=== PATIENT | male | born 1955 | race Caucasian/White ===

== ENCOUNTER 2018-01-01 17:50 | Inpatient (IN) | payer OTHER ==
[~2018-01-01] VITALS: Ht 172.7 cm; Wt 77.7 kg
[2018-01-01] VITALS (7 sets, daily range): BP systolic 132–160; BP diastolic 72–89
[2018-01-01 18:10] LABS: ABSOLUTE BASOPHILS 0.1 thou/uL (0.0-0.2); ABSOLUTE EOSINOPHILS 0.1 thou/uL (0.0-0.7); ABSOLUTE LYMPHOCYTES 1.2 thou/uL (0.8-5.3); ABSOLUTE MONOCYTES 0.5 thou/uL (0.0-1.2); ABSOLUTE NEUTROPHILS 2.7 thou/uL (1.6-8.1); BASOPHILS 1.6 %; EOSINOPHILS 1.1 %; HEMATOCRIT 37.5 % (42.0-52.0); HEMOGLOBIN 12.1 gm/dL (14.0-18.0); MCH 29.9 pg (26.0-34.0); MCHC 32.1 g/dL (28.0-37.0); MCV 93.2 fL (80.0-100.0); MONOCYTES 10.9 %; MPV 8.5 fl. (7.2-11.1); NUCLEATED RBCS 0 /100WBC; PLATELET COUNT* 72 thou/uL (150-400); POLYS 59.4 %; RBC 4.03 mil/uL (4.50-6.00); RDW-CV 18.2 % (10.5-14.5); WBC 4.6 thou/uL (4.0-11.0)
[2018-01-01 18:24] LABS: CALCIUM 7.8 mg/dL (8.5-10.1); CREATININE 2.8 mg/dL (0.6-1.3); POTASSIUM 3.5 mmol/L (3.5-5.1)
[2018-01-01 18:33] LABS: ALBUMIN 2.7 g/dL (3.4-5.0); APTT 26.1 Seconds (25.0-31.3); INR 1.3; MAGNESIUM 2.1 mg/dL (1.8-2.4); PROTIME 13.4 Seconds (9.20-11.50); TOTAL BILIRUBIN 0.8 mg/dL (<0.1-1.0); TROPONIN-I LEVEL 0.08 ng/mL (<0.06)
--- NOTE | 2018-01-01 19:00 | NUR ---
PT TO HAVE BEDSIDE BRONCHOSCOPY BY DR CARRENO. UNABLE TO OBTAIN CONSENT DUE TO SEDATION, AND URGENCY OF PROCEDURE. WILL CONTINUE TO MONITOR.
--- NOTE | 2018-01-01 19:10 | NUR ---
PT TOLERATED WELL, NOTHING EXTRACTED VIA BRONCHOSCOPY. SEE REASSESSMENT FOR PROCEDURE VITALS. WILL CONTINUE TO MONITOR.
[2018-01-01 22:02] LABS: BE -3.9 mmol/L (-2 to +3); HCO3 22.7 mmol/L (22.0-26.0); PCO2 47.2 mmHg (35.0-45.0)
[2018-01-01 22:04] LABS: pH 7.299 (7.340-7.450)
[2018-01-01 22:05] LABS: PO2 143.9 mmHg (75.0-100.0)
[2018-01-01 22:48] LABS: URINE BILIRUBIN NEGATIVE (Negative); URINE BLOOD 3+ (Negative); URINE CLARITY SL CLOUDY; URINE COLOR YELLOW; URINE GLUCOSE-RANDOM NEGATIVE (Negative); URINE KETONES NEGATIVE (Negative); URINE LEUKOCYTES-REFLEX NEGATIVE (Negative); URINE NITRITE-REFLEX NEGATIVE (Negative); URINE PROTEIN 3+ (Negative); URINE SPECIFIC GRAVITY 1.025 (1.005-1.030); URINE UROBILINOGEN 0.2 E.U./dl (0.2-1.0)
[2018-01-01 22:56] LABS: URINE WBC-REFLEX 0-5 Rare /HPF (0-5)
[2018-01-01 22:57] LABS: AMORPHOUS URATES Many /LPF (None Seen); HYALINE CASTS 0-3 Few /LPF (None Seen); MUCUS None Seen strn/LPF (None Seen); SQUAMOUS 0-3 Few /LPF (0-3)
[2018-01-01 22:58] LABS: URINE RBC 3-10 Few /HPF (0-2)
[2018-01-01 23:00] LABS: BACTERIA-REFLEX None Seen /HPF (None Seen)
[2018-01-02] VITALS (66 sets, daily range): BP systolic 79–168; BP diastolic 41–106
[2018-01-02] LABS: ANION GAP 7 mmol/L (7-16); BUN 57 mg/dL (7-18); CALCIUM 8.2 mg/dL (8.5-10.1); CHLORIDE 107 mmol/L (98-107); CO2 26 mmol/L (21-32); CREATININE 2.6 mg/dL (0.6-1.3); GLUCOSE 96 mg/dL (70-99); POTASSIUM 3.8 mmol/L (3.5-5.1); SODIUM 140 mmol/L (136-145)
[2018-01-02] MEDS ORDERED: DEMADEX20 MG PO
[2018-01-02] MEDS ORDERED: COREG25 MG PO (00:03)
[2018-01-02] MEDS ORDERED: ASPIR 8181 MG PO (00:04)
[2018-01-02] MEDS ORDERED: COZAAR 25 MG TA25 M1 PO (00:04)
[2018-01-02] MEDS ORDERED: CRESTOR10 MG PO (00:05)
[2018-01-02 00:12] LABS: NT-PRO BRAIN NAT PEPTIDE > 35000 pg/mL (<300); PHOSPHORUS* 5.3 mg/dL (2.5-4.9); TROPONIN-I LEVEL 0.37 ng/mL (<0.06)
[2018-01-02 00:34] LABS: MAGNESIUM 2.1 mg/dL (1.8-2.4)
[2018-01-02 00:36] LABS: INR 1.3; PROTIME 13.7 Seconds (9.20-11.50)
[2018-01-02 00:43] LABS: ABSOLUTE LYMPHOCYTES 0.5 thou/uL (0.8-5.3); ABSOLUTE MONOCYTES 0.3 thou/uL (0.0-1.2); BASOPHILS 0.8 %; EOSINOPHILS 0.6 %; LYMPHOCYTES 12.2 %; MCH 29.6 pg (26.0-34.0); MCHC 32.6 g/dL (28.0-37.0); MCV 90.8 fL (80.0-100.0); MONOCYTES 8.1 %; MPV 8.2 fl. (7.2-11.1); NUCLEATED RBCS 0 /100WBC; PLATELET COUNT* 59 thou/uL (150-400); POLYS 78.3 %; RBC 4.07 mil/uL (4.50-6.00); RDW-CV 17.8 % (10.5-14.5); WBC 3.8 thou/uL (4.0-11.0)
--- NOTE | 2018-01-02 06:17 | NUR ---
PT NOT PROGRESSING TOWARD GOALS. PT REMAINS IN HYPOTHERMIA. 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 PT ALSO HAS CATARACT BUT THE FAMILY IS NOT SURE WHICH EYE. FAMILY NOT VERY RELIABLE WITH MEDICAL HISTORY. PTS WALLET, MONEY, MEDICINE AND KEYS ARE BEING SENT TO SECURITY. PTS FAMILY WORRIED THAT THE PT WILL BE UPSET WITH MISSING HIS CLASS REUNION ON SATURDAY. THE PT ORGANIZED THE CLASS REUNION. PT PICKED CLASSMATE UP FROM [employer] YESTERDAY AND WAS ON HIS WAY BACK HOME TO [facility] WHEN THEY STOPPED FOR GAS IN [place]. PT SAID HE DID NOT FEEL WELL AND THOUGHT HIS BLOOD SUGAR WAS LOW, SO HE ATE A FASANEH SIZE KITKAT BAR. PTS BROTHER LIVES IN [place] WITH PTS MOTHER (MARY).
[2018-01-02 06:20] LABS: BE -3.9 mmol/L (-2 to +3); HCO3 19.8 mmol/L (22.0-26.0); pH 7.409 (7.340-7.450)
[2018-01-02 06:23] LABS: PO2 128.3 mmHg (75.0-100.0)
[2018-01-02 06:25] LABS: ALBUMIN 2.4 g/dL (3.4-5.0); ALKALINE PHOSPHATASE 44 U/L (46-116); ANION GAP 12 mmol/L (7-16); BUN 55 mg/dL (7-18); CALCIUM 7.9 mg/dL (8.5-10.1); CHLORIDE 107 mmol/L (98-107); CO2 22 mmol/L (21-32); CREATININE 2.4 mg/dL (0.6-1.3); GLUCOSE 96 mg/dL (70-99); NT-PRO BRAIN NAT PEPTIDE > 35000 pg/mL (<300); POTASSIUM 3.1 mmol/L (3.5-5.1); SGOT 29 U/L (15-37); SGPT 17 U/L (30-65); SODIUM 141 mmol/L (136-145); TOTAL BILIRUBIN 1.3 mg/dL (<0.1-1.0); TOTAL PROTEIN 5.4 g/dL (6.4-8.2)
--- NOTE | 2018-01-02 06:27 | NUR ---
ABLE TO IDENTIFY MOST OF PTS MEDICATIONS IN PILL BOX. BELIEVE THREE OF THE PILLS TO BE HERBAL OR VITAMINS. UNABLE TO VERIFY DOSES AND SCHEDULE WITH FAMILY.
--- NOTE | 2018-01-02 13:29 | NUR ---
ASSUMED CARE OF PATIENT THIS AM. REMAINS SEDATED ON VENT. BRADYCARDIC. BP WNL SATING 100% ON 40% FIO2. STILL ON CODE ICE PROTOCOL. TURNED Q2 HOURS. CORE TEMP 33 CELSIUS. EXTREMETIES PADDED. APPEARS COMFORTABLE.
--- NOTE | 2018-01-02 14:59 | NUR ---
PATIENT UCHANGED SENT FOR MED RECORDS.RECEIVED RECORDS FROM JUNE 2016. NO MENTION OF STINT IN JULY FOUND CARD IN [place]. [facility]RESPONSE FROM [facility].
--- NOTE | 2018-01-02 15:25 | 2DMMODE ---
[place] [address] 2 D/M-MODE ECHOCARDIOGRAM Name: RUBIMARTINALENARD CARTER III Room: [address] IN [facility]#: [id number] Admission: 01/01/18 Attend Phys: Gagandeep Tam Discharge: Date of : 53 Date of Service: 01/02/18 1525 Report #: [id number] THIS REPORT FOR: //name// APPROVED REPORT Study performed: 01/02/2018 09:17:47 EXAM: Comprehensive 2D, Doppler, and color-flow Echocardiogram Patient Location: In-Patient Room #: [facility] Status: routine BSA: 2.08 HR: 43 bpm BP: 145/75 mmHg Rhythm: NSR Other Information Study Quality: Good Indications Cardiomegaly 2D Dimensions IVSd: 11.28 (7-11mm) LVOT Diam: 21.68 (18-24mm) LVDd: 56.48 mm PWd: 11.01 (7-11mm) Ascending Ao: 33.21 (22-36mm) LVDs: 50.00 (25-40mm) Aortic Root: 35.73 mm Volumes Left Atrial Volume (Systole) LA ESV Index: 50.00 mL/m2 Aortic Valve AoV Peak Chuckie.: 1.06 m/s AO Peak Gr.: 4.47 mmHg LVOT Max P.51 mmHg AO Mean Gr.: 2.03 mmHg LVOT Mean P.56 mmHg LVOT Max V: 0.61 m/s AO V2 VTI: 26.49 cm LVOT Mean V: 0.33 m/s WES (VTI): 2.27 cm2 LVOT V1 VTI: 16.28 cm Mitral Valve E/A Ratio: 1.22 MV Decel. Time: 494.05 ms MV E Max Chuckie.: 0.49 m/[place] [address] 2 D/M-MODE ECHOCARDIOGRAM Name: MARTINA VENEGAS III Room: [address] IN [facility].#: [id number] Admission: 01/01/18 Attend Phys: Gagandeep Tam Discharge: Date of : 53 Date of Service: 01/02/18 1525 Report #: [id number] MV PHT: 143.28 ms MVA (PHT): 1.54 cm2 TDI E/Lateral E': 16.33 E/Medial E': 16.33 Medial E' Chuckie.: 0.03 m/s Lateral E' Chuckie.: 0.03 m/s Pulmonary Valve PV Peak Chuckie.: 0.64 m/s PV Peak Gr.: 1.62 mmHg Tricuspid Valve RAP Estimate: 5.00 mmHg TR Peak Gr.: 16.73 mmHg RVSP: 21.00 mmHg PA Pressure: 21.00 mmHg Left Ventricle Left ventricle is at the upper limits of normal. There is severe global hypokinesis of the left ventricle. There is normal left ventricular wall thickness. Left ventricular systolic function is severely decreased. LVEF is 20-25%. Transmitral Doppler flow pattern suggests impaired LV relaxation. Right Ventricle Right ventricle is mildly dilated. The right ventricular systolic function is normal. Atria Left atrium is moderately dilated. Right atrium is moderately dilated. Aortic Valve The aortic valve is normal in structure. No aortic regurgitation is present. There is no aortic valvular stenosis. Mitral Valve The mitral valve is normal in structure. Mild mitral regurgitation. No evidence of mitral valve stenosis. Tricuspid Valve The tricuspid valve is normal in structure. Trace tricuspid regurgitation. No pulmonary hypertension. Pulmonic Valve The pulmonary valve is normal in structure. There is no pulmonic [place] [address] 2 D/M-MODE ECHOCARDIOGRAM Name: MARTINA VENEGAS III Room: [address]#: [id number] Admission: 01/01/18 Attend Phys: Gagandeep Tam Discharge: Date of : 53 Date of Service: 01/02/18 1525 Report #: [id number] Great Vessels The aortic root is normal in size. IVC is normal in size and collapses >50% with inspiration. Pericardium Moderate circumferential pericardial effusion. No echo indications of pericardial tamponade. Pleural effusion is seen. <Conclusion> Left ventricle is at the upper limits of normal. There is normal left ventricular wall thickness. Left ventricular systolic function is severely decreased. LVEF is 20-25%. Transmitral Doppler flow pattern suggests impaired LV relaxation. There is severe global hypokinesis of the left ventricle. Right ventricle is mildly dilated. Left atrium is moderately dilated. Right atrium is moderately dilated. Trace tricuspid regurgitation. No pulmonary hypertension. Moderate circumferential pericardial effusion. No echo indications of pericardial tamponade. Pleural effusion is seen. <ELECTRONICALLY SIGNED> By: Emmanuel Aden MD, FACC 01/02/18 1525 1525 1525 Emmanuel Aden MD, FACC /INF
--- NOTE | 2018-01-02 16:39 | EKG ---
[place] [address] ELECTROCARDIOGRAM REPORT Name: RUBIMARTINA III Room: [address] ADM IN M.R.#: [id number] Admission: 01/01/18 Attend Phys: Artem Bacon Discharge: Date of : 53 Report #: [id number] THIS REPORT FOR: //name// [facility] ED Test Date: 2018-01-01 Test Time: 17:50:40 Pat Name: MARTINA VENEGAS Department: Room: [address] Gender: M Registered Medical Transcriptionist: Elvira GUILLEN : 1955 Requested By: Gagandeep Tam Order Number: [id number] Digna MD: Austin Alicia Measurements Intervals [place] Rate: 64 P: 23 AR: 155 QRS: 29 QRSD: 107 T: 199 QT: 444 QTc: 458 Interpretive Statements Sinus rhythm Borderline low voltage, extremity leads Anteroseptal infarct, old Nonspecific T abnormalities, lateral leads No previous ECG available for comparison Electronically Signed On 01-02-2018 16:39:02 CDT by Austin Alicia [email or web address] <ELECTRONICALLY SIGNED> By: Austin Alicia MD, [facility] 01/02/18 1639 1750 1750 Austin Alicia MD, [facility] /EPI
--- NOTE | 2018-01-02 18:49 | PROC ---
[facility] [address] [place] [address] PROCEDURE REPORT Name: RUBIMARTINALENARD CARTER III Room: [address] IN M.R.#: [id number] Admission: 01/01/18 Attend Phys: Artem Bacon Discharge: Date of : 53 Report #: [id number] THIS REPORT FOR: //name// CC: NORA physician/PCP Gagandeep Tam DATE OF SERVICE: 01/01/2018 PROCEDURE: Flexible fiberoptic bronchoscopy examination. INDICATION: Aspiration of food particle. COMPLICATIONS: None. DISCUSSION DESCRIPTION: The patient was intubated. He had an out of hospital arrest. He was successfully resuscitated. The patient apparently was seen leaving a gas station facility. After exiting the building, he apparently choked and passed out. He was successfully revived. EMS was notified. See the rest of the H and P. Because of the above, it was elected to proceed with a bronchoscopy examination at the bedside. The patient is on a propofol drip. He received 2 mg of Versed IV. Once this was performed, the bronchoscope was utilized and inserted through the endotracheal tube via an adaptor. Once this was placed, the bronchoscope was advanced distally. Nohemy was encountered. The ET tube was secured adequately above the nohemy. The left and right tracheobronchial tree was examined and demonstrated patency of the bronchopulmonary segments throughout. There was no evidence of foreign matter. The mucosa was normal in appearance. There was no evidence of swelling or erythema. Lavage of the right and left side of approximately 10-15 mL of saline was performed. Again with aspiration of the solution, there was no evidence of foreign matter retrieved. The bronchoscope was removed without incident. <ELECTRONICALLY SIGNED> By: Gabi Lin MD 01/02/181848 37 Aljj Boyd MD /nt
--- NOTE | 2018-01-02 18:49 | CON ---
[address] [address] CONSULTATION Name: RUBIMARTINA EMMA DUEÑAS Room: [address] IN M.R.#: [id number] Admission: 01/01/18 Attend Phys: Artem Bacon Discharge: Date of : 53 Report #: [id number] THIS REPORT FOR: //name// CC: NORA physician/PCP Gagandeep Tam DATE OF SERVICE: 01/01/2018 PULMONARY CONSULTATION REFERRING PHYSICIAN: Nicolas Garcia M.D. CHIEF COMPLAINT: Aspiration, respiratory failure. HISTORY OF PRESENT ILLNESS: The patient is a 62-year-old male who is intubated. He is on a propofol drip in the Emergency Room. I was contacted regarding the fact that the patient had been witnessed chewing a candy bar, had a cardiopulmonary arrest at a gas station. He became unresponsive, had choked. EMS was notified, and they presented on the scene. The patient underwent a CPR, had apparently 1 round of epinephrine, I am assuming 1 mg. Also, ketamine was provided en route for intubation purposes. The patient's oral cavity was evacuated by the EMS service with residual food particles. Apparently, there was some concern and question about the patient's aspiration and foreign matter was suctioned from the ET tube originally and size 7 endotracheal tube was inserted. He was evaluated in the Emergency Room. He underwent a CT of the brain, which per report and ER physician was reported as no acute abnormalities. FAMILY HISTORY, REVIEW OF SYSTEMS, SOCIAL HISTORY, MEDICATION HISTORY: Unknown. PHYSICAL EXAMINATION: VITAL SIGNS: Blood pressure is approximately 117/65, respiratory rate 16, pulse rate 56, temperature was 35.8 degrees. GENERAL APPEARANCE: The patient is unresponsive. He is intubated. He does have some upper extremity, almost posturing-looking movement. HEAD: Atraumatic. EYES: Pupils show marked dilatation of the left pupil without pupillary reaction. The right pupil is mid size and could not elicit any sort of light reflex. There is no scleral icterus. ORAL CAVITY: The endotracheal tube is secured intact. No appreciable foreign matter visualized at the entry of the oral cavity. NECK: Freely movable. There are no abnormalities noted. Neck veins are flat. CHEST: Reveals coarse breath sounds. No wheezes, no rhonchi. CARDIOVASCULAR: Reveals a regular rhythm. No obvious murmurs or rubs. ABDOMEN: Slightly distended. There is no evidence of guarding or rebound. EXTREMITIES: Reveal marked peripheral edema bilaterally of approximately 3+. He does have an abrasion on his left ankle on the medial [place] [address] CONSULTATION Name: MARTINA VENEGAS DESIRAEFAROOQ SPENSER Room: [address] IN ..#: [id number] Admission: 01/01/18 Attend Phys: Artem Bacon Discharge: Date of : 53 Report #: [id number] recent passing out event. There is no evidence of clubbing. SKIN: Warm and dry, otherwise. NEUROLOGIC: He has no purposeful movement. Some upper extremity apparent posturing. He does not respond to pain. No withdrawal to pain. MEDICAL IMAGING STUDIES: CT of the brain did not show any acute injury. Chest x-ray revealed endotracheal tube to be above the divina, well positioned. The heart is enlarged. There is perihilar infiltrate, opacities, greater on the right than the left. No evidence of pneumothorax or effusion. LABORATORY DATA: Hemoglobin and hematocrit of 12 and 37 with a white count of 4600. Arterial blood gas is pending. Electrolytes reveal sodium 141, potassium 3.5, chloride 106, CO2 of 22, BUN 53, creatinine 2.8, EGFR 23, glucose 151, total bilirubin 0.8. Troponin 0.08. ASSESSMENT: 1. Cardiopulmonary arrest, out of hospital, successfully resuscitated with return of vital signs. 2. Aspiration of foreign body. 3. Cardiomegaly. 4. Presumed congestive heart failure. 5. Chronic kidney disease, acute renal injury, most likely, unclear etiology. 6. Peripheral edema. RECOMMENDATION: A 2D echocardiogram, cardiac enzymes will be initiated. The patient is in out of hospital arrest, not responding appropriately. After successful resuscitation, he is scheduled to undergo code ice protocol. From pulmonary standpoint, we will go ahead and initiate antibiotic coverage. We will also initiate aerosol treatments. Ventilator changes depending on the results of arterial blood gases. Follow up ABGs, chest x-ray in the a.m. Follow up labs in the a.m. ProBNP. We will also get renal involved regarding his abnormal renal function. A proBNP will be obtained as well. In addition to this, since the patient is intubated with a history of aspiration, we will go ahead and perform a bedside bronchoscopy examination to evaluate his airways to make sure we are not dealing with residual foreign matter in his airways. <ELECTRONICALLY SIGNED> By: Gabi Lin MD 01/02/18 1849 [id number] Boyd MD /nt
[2018-01-03] VITALS (80 sets, daily range): BP systolic 91–131; BP diastolic 45–68
[2018-01-03 04:34] LABS: HEMATOCRIT 38.6 % (42.0-52.0); HEMOGLOBIN 12.7 gm/dL (14.0-18.0); MCV 90.9 fL (80.0-100.0); MPV 8.3 fl. (7.2-11.1); NUCLEATED RBCS 0 /100WBC; PLATELET COUNT* 64 thou/uL (150-400); RBC 4.25 mil/uL (4.50-6.00); RDW-CV 18.2 % (10.5-14.5); WBC 7.2 thou/uL (4.0-11.0)
[2018-01-03 04:56] LABS: ALBUMIN 2.2 g/dL (3.4-5.0); CALCIUM 7.4 mg/dL (8.5-10.1); CREATININE 2.5 mg/dL (0.6-1.3); TOTAL BILIRUBIN 1.1 mg/dL (<0.1-1.0); TOTAL PROTEIN 5.5 g/dL (6.4-8.2)
[2018-01-03 06:30] LABS: BE -5.5 mmol/L (-2 to +3); HCO3 17.8 mmol/L (22.0-26.0); PCO2 28.6 mmHg (35.0-45.0); PO2 101.1 mmHg (75.0-100.0); pH 7.412 (7.340-7.450)
[2018-01-03 06:31] LABS: ABSOLUTE BASOPHILS 0.1 thou/uL (0.0-0.2); ABSOLUTE EOSINOPHILS 0.1 thou/uL (0.0-0.7); ABSOLUTE LYMPHOCYTES 0.3 thou/uL (0.8-5.3); ABSOLUTE MONOCYTES 0.3 thou/uL (0.0-1.2); ABSOLUTE NEUTROPHILS 6.3 thou/uL (1.6-8.1); PLATELET ESTIMATE DECREASED
[2018-01-03 06:33] LABS: SCHISTOCYTES 1+
[2018-01-03 06:34] LABS: MACROCYTES 1+; POIKILOCYTOSIS 2+
[2018-01-03 06:37] LABS: BURR CELLS 2+
--- NOTE | 2018-01-03 06:45 | NUR ---
Pt re-warmed to 98.4 F. VSS. Gtts adjusted slightly throughout the night to achieve MAP of at least 65. Currently on Dopamine @ 3.5 mcg/kg/min, Propofol @ 20 mcg/kg/min, and Versed @ 5 mg/hr. Pt remains unresponsive. Mild eyelid twitching noted early in shift while assessing Rt pupil. Low urine output via watkins; draining clear jaswinder. Central line placed to [facility] toward the end of day shift yesterday. Dressing soon became saturated with sanguineous drng. Drsg changed at 0230, and noted small amount of oozing soon after, then stopped. At 0600, more sanguineous drainage noted at site which leaked out from under tegaderm drsg. Will continue to monitor. Pt not progressing toward goals at this time.
--- NOTE | 2018-01-03 08:59 | NUR ---
RN RESUMED CARE OF PT THIS AM. PT VENTED AND SEDATED ON VERSED AND PROPOFOL. PT UNRESPONSIVE TO PAINFUL STIMULI. DOPAMINE CONTINUES. VS STABLE AND PT IN NSR. PT TEMP 98.5F AT THIS TIME. GOALS INCLUDE WEAN SEDATION AND DOPAMINE TOLERATED. MAINTAIN STABLE VS. NO FAMILY AT BEDSIDE AT THIS TIME. WILL CONTINUE TO MONITOR.
--- NOTE | 2018-01-03 10:57 | NUR ---
REWARMING BLANKET REMOVED PER PROTOCOL AT 1045. PT TOLERATING WELL AT THIS TIME. CORE TEMP 98.7F PER PORRAS TEMP PROBE. BP 105/55, HR 73, 02 97, AND RESPIRATIONS 20. PT REMAINS VENTILATED AND ON DOPAMINE AT 3 AND VERSED AT 3. WEANED OFF PROPOFOL. PT REMAINS UNRESPONSIVE. WILL CONTINUE TO MONITOR.
--- NOTE | 2018-01-03 11:01 | NUR ---
PT ADMITTED 01/01 CODE ICE. PT NOW RE-WARMED, REMAINS ON VENT. NO FAMILY HERE AT THIS TIME, PER NURSING THEY HAVE TALKED WITH FAMILY. CASE MGT WILL CONTINUE TO FOLLOW.
[2018-01-03] MEDS ORDERED: VITAMIN B-12500 MCG PO (11:22)
[2018-01-03] MEDS ORDERED: IRON325 PO (11:23)
[2018-01-03] MEDS ORDERED: PROBIOTIC1 EAC1 PO (11:23)
[2018-01-03] MEDS ORDERED: CO Q-10100 MG PO (11:23)
[2018-01-03] MEDS ORDERED: VITAMIN D3400 UNIT PO (11:24)
[2018-01-03] MEDS ORDERED: COREG6.25 MG PO (11:25)
--- NOTE | 2018-01-03 16:04 | CON ---
[address] [address] CONSULTATION Name: MARTINA VENEGAS DESIRAEFAROOQ SPENSER Room: [address] IN .R.#: [id number] Admission: 01/01/18 Attend Phys: Artem Bacon Discharge: Date of : 53 Report #: [id number] THIS REPORT FOR: //name// CC: NORA physician/PCP Gagandeep Tam TYPE OF REPORT: Cardiology consultation. INDICATION: Respiratory arrest. HISTORY OF PRESENT ILLNESS: The patient is a 62-year-old gentleman who had a witnessed arrest after aspirating. The patient received CPR promptly and was transported to the hospital for further treatment. The patient was intubated in the field. The patient apparently had cardiac surgery 1 year ago. Outside records are not available. No history is available as the patient is intubated. Presently, vital signs stable. The patient is moderately bradycardic but hemodynamically stable. FAMILY HISTORY: Not obtainable. SOCIAL HISTORY: Not obtainable. REVIEW OF SYSTEMS: Not obtainable. PAST MEDICAL HISTORY: Unknown. PHYSICAL EXAMINATION: VITAL SIGNS: Blood pressure 149/71 and pulse 42 and regular. GENERAL: This is a white male who is intubated and unresponsive. HEENT: Head is normocephalic and atraumatic. NECK: Shows no jugular venous distention. CHEST: Reveals coarse breath sounds bilaterally. CARDIOVASCULAR: Reveals a regular rhythm that is bradycardic without gallop or murmur. ABDOMEN: Reveals normal bowel sounds. The abdomen is soft and nontender. EXTREMITIES: Shows no edema. Peripheral pulses are 2+ and easily palpable. SKIN: Warm and dry. CARDIOLOGICAL DATA: EKG shows sinus rhythm with subtle ST-segment depression in the lateral leads. LABORATORY DATA: Labs are reviewed. Sodium 141, potassium 3.1, chloride 107, bicarbonate 22, BUN 55, creatinine 2.4 and serum glucose 96. LFTs fairly unremarkable with the exception of a total bilirubin of 1.3. Troponin presently 0.37. NT-pro-BNP is greater than 35,000. White blood cell count 3.8, hemoglobin 12.0 and [place] 59[place] [address] CONSULTATION Name: MARTINA VENEGAS III Room: [address] IN [facility]#: [id number] Admission: 01/01/18 Attend Phys: Artem Bacon Discharge: Date of : 53 Report #: [id number] RADIOLOGICAL DATA: Chest x-ray shows cardiomegaly with mild pulmonary vascular congestion. Wires not appreciated on chest x-ray. IMPRESSION AND RECOMMENDATIONS: 1. Aspiration with respiratory arrest. The patient intubated, presently stable on ventilator. 2. History of cardiac surgery. Medical records not presently available for review. 3. Bradycardia. At this point in time, we will discontinue clonidine patch and substitute with other venous antihypertensive medications. 4. Renal insufficiency, possibly chronic. 5. Hypokalemia. We will place on electrolyte replacement protocol. <ELECTRONICALLY SIGNED> By: Emmanuel Aden MD, FACC 01/03/18 1604 0856 [id number] Jay Aden MD, FACC /nt
--- NOTE | 2018-01-03 16:56 | NUR ---
PT NOT ABLE TO PROGRESS TOWARDS GOALS THROUGHOUT THE SHIFT. REMAINS VENTILATED. VSS ON DOPAMINE AT 3 MCG/KG/MIN. PROPOFOL WEANED OFF AT 1030. PER PULMONOLOGY, VERSED GTT STOPPED AT 1412 IN ORDER TO ASSESS NEURO STATUS. PT REAMINS UNRESPONSIVE TO PAINFUL STIMULI. NEUROLOGY CONSULTED - EEG TO BE COMPLETED IN THE AM, MARIBEL NOTIFIED. NUC MED BRAIN STUDY TO BE COMPLETED TONIGHT IF ABLE - WAITING TO HEAR BACK FROM NUC MED WHETHER TEST CAN BE PERFORMED. IF ABLE TO NUC MED STUDY TO BE COMPLETED TONIGHT. MTN NOTIFIED THIS SHIFT OF GCS < 5, REFERENCE NUMBER [id number]. PT MOTHER CALLED THIS AM AND PROVIDED MEDICATION LIST, MEDICATIONS UPDATED. STATES SHE WILL PROBABLY BE HERE TOMORROW. WILL CALL PT MOTHER THIS EVENING AND UPDATE HER ON PT STATUS AND PLAN OF CARE.
[2018-01-04] VITALS (27 sets, daily range): BP systolic 120–178; BP diastolic 56–97
--- NOTE | 2018-01-04 07:26 | NUR ---
Pt becoming active, especially since bath at 0200. Thick saenz sputum suctioned through ET. Prior to bath, only minimal secretions. Pt also yawning at times, moving arms, coughing, opening eyes, and turning head. T up to 99.7, then down to 99.0 after bath, but up to 100 by end of shift. Output improved from previous shift; 375 out of dk jaswinder urine. Remains off sedating agents since day shift yesterday. Also weaned off of dopamine gtt at 0249. BP gradually increased throughout shift, currently 151/88. Will continue to monitor.
[2018-01-04 07:36] LABS: CALCIUM 7.3 mg/dL (8.5-10.1); CREATININE 2.8 mg/dL (0.6-1.3); POTASSIUM 4.4 mmol/L (3.5-5.1)
--- NOTE | 2018-01-04 10:23 | NUR ---
MTN WILL NOT LONGER BE FOLLOWING PT. WE ARE TO CALL IF PT HAS NEUROLOGICAL DECLINE OR IF FAMILY WOULD LIKE TO WITHDRAWEL CARE.
--- NOTE | 2018-01-04 10:53 | NUR ---
ALIZA ORDERED PT TO TRANSFER TO TELE ONCE CARDIOLOGY APPROVED TRANSFER. JAY APPROVED TRANSFER TO TELE STATUS.
--- NOTE | 2018-01-04 13:19 | EEG ---
[address] [address] EEG STUDY REPORT Name: MARTINA VENEGAS SPENSER Room: [address]#: [id number] Admission: 01/01/18 Attend Phys: Artem Bacon Discharge: Date of : 53 Report #: [id number] THIS REPORT FOR: //name// CC: NORA physician/PCP Gagandeep Tam DO HISTORY: The patient is a 62-year-old male status post cardiac arrest with altered mental status. An EEG is requested for further evaluation. DESCRIPTION: The record consists of diffuse moderate amplitude 5-6 cycle per second activity. No focal abnormalities or epileptiform discharges are noted. Photic stimulation was nonactivating. No subclinical seizures were noted. IMPRESSION: This is an abnormal adult record consistent with moderate diffuse cerebral dysfunction. No subclinical seizures are noted. <ELECTRONICALLY SIGNED> By: Jessie Barraza DO 01/04/18 1319 1254 [id number] Barraza DO /nt
[2018-01-04 14:43] LABS: BE -7.3 mmol/L (-2 to +3); HCO3 16.2 mmol/L (22.0-26.0); PCO2 27.1 mmHg (35.0-45.0); pH 7.395 (7.340-7.450)
[2018-01-04 14:44] LABS: PO2 136.5 mmHg (75.0-100.0)
--- NOTE | 2018-01-04 18:21 | NUR ---
PT PROGRESSING TOWARD GOALS. PT MORE REPONSIVE THROUGHOUT THE DAY. PT ABLE TO ADVERTISING REP ON COMMAND AND OPEN EYES WHEN NAME IS CALLED. PT BECAME RESTLESS AND REQUIRED VERSED IV PUSH. PTS FAMILY AND FRIENDS AT BEDSIDE DURING THE DAY. PT ABLE TO WIGGLE HIMSELF DOWN AND ATTEMPTED TO GRAB THE TUBE. PTS RESTRAINTS MUST BE CHECKED FREQUENTLY.
[2018-01-05] VITALS (26 sets, daily range): BP systolic 146–176; BP diastolic 79–100
--- NOTE | 2018-01-05 05:48 | NUR ---
ASSUMED PATIENT CARE AT APPROX 1900. PATIENT AWAKE BUT LETHARGIC AT THAT TIME. FAMILY AT BEDSIDE FROM APPROX 2000 UNTIL 2200. PATIENT ABLE TO QUEEZE HAND AND NOD YES/NO FOR ANSWERS. NO COMPLAINTS OF PAIN NOTED. PATIENT BECAME MORE AWAKE AND ALERT THROUGHOUT THE NIGHT. EDUCATION AND ORIENTATION COMPLETED AND REINFORCED. PERIPHERAL IV SITES D/C'C RT PATIENT HAVING A TRIPLE LUMEN CENTRAL LINE. IV PATENT TO MEDICATION AND BLOOD DRAWS. WOUND PICTURE TAKEN. WEANING TRIAL COMPLETED THIS AM. PORRAS CATH INPLACE AND PATENT TO DEPENDENT DRAINAGE. PROGRESSING TOWARDS GOALS AT THIS TIME. PATIENT TURNED Q2 HOURS. UNDERGROUND UTILITY LOCATOR COMPLETED DOCUMENTED
[2018-01-05 06:19] LABS: BE -7.9 mmol/L (-2 to +3); HCO3 16.6 mmol/L (22.0-26.0); PCO2 30.6 mmHg (35.0-45.0); pH 7.351 (7.340-7.450)
[2018-01-05 06:21] LABS: PO2 203.2 mmHg (75.0-100.0)
--- NOTE | 2018-01-05 08:35 | CON ---
[address] [address] CONSULTATION Name: MARTINA VENEGAS DESIRAEFAROOQ SPENSER Room: [address] IN M.R.#: [id number] Admission: 01/01/18 Attend Phys: Artem Bacon Discharge: Date of : 53 Report #: [id number] THIS REPORT FOR: //name// CC: NORA physician/PCP Gagandeep Tam DATE OF SERVICE: 01/02/2018 Nephrology Consultation CONSULTING PHYSICIAN: Dr. Boyd. REASON FOR NEPHROLOGY CONSULTATION: Acute kidney injury. CHIEF COMPLAINT: Cardiac arrest. HISTORY OF PRESENT ILLNESS: This is a 62-year-old male with past medical history of diabetes mellitus type 2, hypertension, who had a cardiac arrest history at a gas station. The patient was seen eating chocolate candy bar and he was seen choking on it, after which he stopped breathing. CPR was already performed, as well as 1 epinephrine was already given prior to arrival and the patient had return of spontaneous circulation before EMS arrived there and EMS staff also aspirated a lot of liquidy type of fluid from his airway and then he was brought to the hospital here to [facility]. Here, a code ice protocol was started. His creatinine was found to be 2.8 and hence nephrology was consulted. He was started on IV fluids. His CPK was slightly high at 928 as well. He also had a bronchoscopy done yesterday, which did not reveal any foreign material. His chest x-ray shows evidence of possible aspiration and he has been started on antibiotics. His blood pressures are pretty stable. His creatinine has come down to 2.4 with IV hydration. His baseline creatinine is not known, but it looks he does take losartan and torsemide at home. We do not have his ejection fraction. We do not know if he takes any NSAIDs or not or if he has any history of any kidney stones or not. ALLERGIES: We cannot assess that. REVIEW OF SYSTEMS: This is as mentioned in history of present illness. The patient is currently intubated and not responsive. HOME MEDICATIONS: Include Torsemide, carvedilol, aspirin, losartan, rosuvastatin. FAMILY HISTORY: Not known. PAST MEDICAL HISTORY: Includes likely history of diabetes ?, hypertension, and other [place] [address] CONSULTATION Name: MARTINA VENEGAS III Room: [address]#: [id number] Admission: 01/01/18 Attend Phys: Artem Bacon Discharge: Date of : 53 Report #: [id number] PAST SURGICAL HISTORY: Not known. SOCIAL HISTORY: Not known. PHYSICAL EXAMINATION: VITAL SIGNS: Blood pressure is 157/77, temperature is 33.1, pulse rate is 44, respiratory rate is 18, pulse ox 100% and he is on the ventilator. GENERAL: He is currently intubated, not responsive. HEAD, EYES, EARS, NOSE, AND THROAT: There is an ET tube in place. NECK: There is no JVD. CHEST: Having decreased breath sounds bilaterally. No crackles. CARDIOVASCULAR: S1, S2 normal. No murmurs. ABDOMEN: Abdomen is soft, nontender. Bowel sounds are present. EXTREMITIES: There is no lower extremity edema, symmetrical lower extremities. There is a skin tear on the left foot. NEUROLOGIC: Currently unresponsive. PSYCHIATRY: Cannot assess right now. LABORATORY DATA: Hemoglobin is 12.2, WBC 3.8, platelet count is 59. Potassium was 3.1, sodium was 141, chloride is 107, CO2 is 22, BUN is 55 and creatinine was 2.4 and was 2.8 when he came in. All the labs were reviewed. IMAGING STUDIES: Chest x-ray, head CT were reviewed. ASSESSMENT: 1. Likely acute kidney injury, but baseline creatinine is not known, improving with IV hydration. The patient was taking ARB and torsemide at home as well. His urine output has been decent so far, 725 mL overnight. Renal ultrasound will be checked as well. Urinalysis showed evidence of 3+ protein and 3-10 RBCs per high power field. Currently since creatinine is getting better, we can just repeat this urinalysis once his creatinine improves even further. 2. Cardiopulmonary arrest, which is likely respiratory in origin after aspiration of foreign body, the patient is on antibiotics for possible aspiration and currently is hemodynamically stable, currently code ice protocol has been initiated. 3. Elevated CPK, mild rhabdomyolysis, he is getting IV fluids. CPK level will be rechecked tomorrow. 4. Hypokalemia in the setting of hypothermia, replacement is being done as per protocol. 5. Thrombocytopenia, which could be in the setting of sepsis. We will also check smear to pathology. Peripheral blood smear to rule out schistocytes. 6. Hypertension. Blood pressure is currently controlled. Please keep holding diuretics and ARB or LUIS A inhibitor for now. PLAN: [address] [address] CONSULTATION Name: MARTINA VENEGAS III Room: [address] IN .R.#: [id number] Admission: 01/01/18 Attend Phys: Artem Bacon Discharge: Date of : 53 Report #: [id number] 1. We will check a renal ultrasound. Strict Is and Os need to be maintained. 2. We will decrease normal saline to 100 mL an hour. We will monitor CPK. 3. Recommend checking an echocardiogram as well. 4. Clinically, the patient does not look volume overloaded, so I would continue IV fluids, but we will just decrease the rate. 5. Please try to find her baseline creatinine. Thank you for this consultation and we will continue to follow along with you. Did spend more than 35 minutes in the patient's critical care and reviewing the patient's chart, his medications and placing orders and discussion with the patient's nurse and examining the patient. We will continue to follow along with you. <ELECTRONICALLY SIGNED> By: Tessa Fernandez MD 01/05/18 0835 [id number] [id number] Fernandez MD /nt
[2018-01-05 09:14] LABS: BE -9.6 mmol/L (-2 to +3); HCO3 14.7 mmol/L (22.0-26.0); PCO2 27.6 mmHg (35.0-45.0); PO2 103.5 mmHg (75.0-100.0); pH 7.343 (7.340-7.450)
--- NOTE | 2018-01-05 09:41 | NUR ---
HOLDING SWALLOW STUDY THIS AM. PT VERY SLEEPY WITH SLOW RESPONSES. WILL WAIT UNTIL PT IS MORE ALERT AND ACTIVE BEFORE ATTEMPTING SWALLOW STUDY.
--- NOTE | 2018-01-05 12:20 | CON ---
[facility] [address] [place] [address] CONSULTATION Name: RUBIMARTINALENARD CARTER III Room: [address] IN M.R.#: [id number] Admission: 01/01/18 Attend Phys: Artem Bacon Discharge: Date of : 53 Report #: [id number] THIS REPORT FOR: //name// CC: NORA physician/PCP Gagandeep Tam HISTORY OF PRESENT ILLNESS: The patient is a 62-year-old male who was at the gas station when he choked on a Kit-Stella bar. The patient had to be resuscitated and was intubated. This occurred approximately 3 days ago. The patient is still on the ventilator, but the sedation was withdrawn and there was concern because the patient was not responsive; however, the patient has since that time become more responsive and did require sedation. An EEG has been done and shows no evidence of seizure activity. The patient's sister and [id number] are in the room. PAST MEDICAL HISTORY: Hypertension and hyperlipidemia. PAST SURGICAL HISTORY: Unknown. MEDICATIONS: Torsemide 20 mg daily, Coreg 25 mg b.i.d., aspirin 81 mg daily, Cozaar 25 mg daily, Crestor 10 mg daily. ALLERGIES: None. PHYSICAL EXAMINATION: VITAL SIGNS: Temperature 37.2, pulse rate 78, respiratory rate 23, blood pressure 156/86, bedside pulse oximetry 100% on the ventilator. NEUROLOGIC: Cranial nerves: The left pupil is moderately enlarged and irregular and not reactive to light. The right pupil is smaller in size and slightly reactive to light. Corneal reflexes are present. The patient has some movement in all 4 extremities. Tone and bulk are normal. Reflexes are trace throughout. Plantar responses are extensor bilaterally. Coordination and gait cannot be tested. LABORATORY DATA: White blood cell count 7.2, hemoglobin 12.7, hematocrit 38.6, platelet count 64,000. INR 1.3. Chemistry: Sodium 142, potassium 4.4, chloride 109, carbon dioxide 19, BUN 59, creatinine 2.8, glucose 162. IMAGING STUDIES: CT scan of the head dated 01/01/2018 demonstrates no acute intracranial process. IMPRESSION: This patient is status post code. The electroencephalogram shows no evidence of seizure activity and demonstrates moderate diffuse cerebral dysfunction. The exam is nonfocal; however, the patient had received sedation [place] [address] CONSULTATION Name: MARTINA VENEGAS EMMA DUEÑAS Room: [address]#: [id number] Admission: 01/01/18 Attend Phys: Artem Bacon Discharge: Date of : 53 Report #: [id number] I will reevaluate the patient tomorrow and do hope that he does not receive any additional sedation and is more awake and alert. I thank you for your kind referral of the patient and will continue to follow him with you. <ELECTRONICALLY SIGNED> By: Jessie Barraza DO 01/05/18 1220 1355 [id number] Abel Barraza DO /nt
--- NOTE | 2018-01-05 19:42 | NUR ---
PT UNABLE TO FOLLOW COMMANDS FOR SWALLOW STUDY. WILL ATTEMPT SWALLOW STUDY WHEN PT BECOME MORE RESPONSIVE
[2018-01-06] VITALS (14 sets, daily range): BP systolic 126–172; BP diastolic 74–95
--- NOTE | 2018-01-06 04:38 | NUR ---
ASSUMED PT CARE AT 1930. NURSING ASSESSMENT COMPLETED AT START OF SHIFT. PT AWAKE, EAGER TO EAT/DRINK. FAILED BEDSIDE SWALLOW, CONTINUES TO BE NPO. PT TRACING SINUS RHYTHM WITH PVCS ON PROGRAM COORDINATOR EXECUTIVE EDUCATION. PT EXHIBITED CONFUSION/AGITATION/VISUAL HALLUCINATIONS. ALSO ATTEMPTED TO HIT STAFF WITH CLOSED FISTS. DR. LOPEZ NOTIFIED, NEW ORDERS RECEIVED. SEE EMAR FOR DOCUMENTATION. FALL PRECAUTIONS REMAIN IN PLACE, CALL LIGHT WITHIN REACH.
--- NOTE | 2018-01-06 06:30 | NUR ---
PATIENT REFUSED ACCU CHECK THIS AM. PT HELD FINGERS IN TIGHT CLOSED FISTS. EDUCATED PT ON IMPORTANCE. PT REQUIRES REINFORCEMENT DUE TO COGNITIVE IMPAIRMENT AT THIS TIME.
--- NOTE | 2018-01-06 10:15 | NUR ---
PT EXTUBATED YESTERDAY, CONFUSED AT TIMES STILL. PT, OT, ST TO EVAL PT. IS NOW TELE STATUS. CASE MGT WILL CONTINUE TO FOLLOW.
--- NOTE | 2018-01-06 11:32 | NUR ---
PT TELE STATUS. ASSESSMENT CHARTED. AFEBRILE. SWALLOW EVAL TODAY AND PT/OT TO WORK WITH PT. TPN ORDERED DUE TO INABILITY TO SWALLOW. REPORT GIVEN TO RAFA ORELLANA. PT TRANSFERRED TO 201 AROUND 1120.
--- NOTE | 2018-01-06 12:06 | NUR ---
PT ORIENTED TO ROOM 201. BED LOW AND LOCKED, SIDE RAILS UP X 3 CALL LIGHT IN REACH. WILL CONTINUE TO ASSESS.
--- NOTE | 2018-01-06 13:43 | NUR ---
IV AND TELE DISCONTINUED. PT UNDERSTANDS ALL FOLLOW UP ORDERS WILL DC TO HOME.
[2018-01-06 16:13] LABS: CALCIUM 8.5 mg/dL (8.5-10.1); CREATININE 2.7 mg/dL (0.6-1.3); POTASSIUM 4.1 mmol/L (3.5-5.1)
--- NOTE | 2018-01-06 16:40 | NUR ---
CHECKED WITH PHARMACY OK TO GIVEN PT IV ABX.
[2018-01-07] VITALS: BP 152/92
[2018-01-07 04:00] VITALS: BP 169/89
--- NOTE | 2018-01-07 04:42 | NUR ---
ASSUMED PT CARE AT 1930. NURSING ASSESSMENT COMPLETED AT START OF SHIFT. PT VOICED NO CONCERNS. PT ORIENTED TO SELF ONLY. IMPULSIVE AT TIMES AND ATTEMPTS TO PULL AT CATHETER AND CENTRAL LINE. ANA PAULA USED THIS SHIFT FOR PATIENT SAFETY. PT REMAINS NPO FOR VIDEO SWALLOW STUDY IN AM. FALL PRECAUTIONS IN PLACE. CALL LIGHT WITHIN REACH. TPN INFUSING.
[2018-01-07 05:50] LABS: HEMOGLOBIN 11.7 gm/dL (14.0-18.0); MCHC 32.5 g/dL (28.0-37.0); MCV 92.2 fL (80.0-100.0); MPV 8.2 fl. (7.2-11.1); NUCLEATED RBCS 0 /100WBC; PLATELET COUNT* 83 thou/uL (150-400); RDW-CV 18.3 % (10.5-14.5); WBC 6.5 thou/uL (4.0-11.0)
[2018-01-07 06:03] LABS: CALCIUM 8.5 mg/dL (8.5-10.1); CREATININE 2.6 mg/dL (0.6-1.3); POTASSIUM 4.3 mmol/L (3.5-5.1)
[2018-01-07 06:16] LABS: ABSOLUTE EOSINOPHILS 0.1 thou/uL (0.0-0.7); ABSOLUTE LYMPHOCYTES 0.7 thou/uL (0.8-5.3); ABSOLUTE MONOCYTES 0.1 thou/uL (0.0-1.2); ABSOLUTE NEUTROPHILS 5.7 thou/uL (1.6-8.1); ANISOCYTOSIS 1+; PLATELET ESTIMATE DECREASED
[2018-01-07 06:17] LABS: ALBUMIN 2.5 g/dL (3.4-5.0); CALCIUM 8.3 mg/dL (8.5-10.1); CREATININE 2.5 mg/dL (0.6-1.3); MAGNESIUM 2.4 mg/dL (1.8-2.4); PHOSPHORUS* 4.3 mg/dL (2.5-4.9); POTASSIUM 4.3 mmol/L (3.5-5.1)
[2018-01-07 09:34] VITALS: BP 167/86
--- NOTE | 2018-01-07 11:17 | NUR ---
PT BECAME CONFUSED AND PULLING AT LINES. GAVE IV HALDOL PER DR. GARCIA. ASSESS PT AND LEFT SUBCLAVIAN TL CVC WITH DR. GARCIA AT BEDSIDE. DR. GARCIA INSTRUCTS THECVC RIGHT SUBCLAVIAN DOES NOT APPEAR DISLODGED, REMAINS PATENT AND OK TO USE. WILL CONTINUE TO ASSESS.
--- NOTE | 2018-01-07 11:42 | NUR ---
PT OFF UINIT TO VIDEO SWALLOW EVAL.
[2018-01-07 11:53] LABS: CALCIUM 8.3 mg/dL (8.5-10.1); CREATININE 2.6 mg/dL (0.6-1.3); MAGNESIUM 2.4 mg/dL (1.8-2.4); POTASSIUM 4.3 mmol/L (3.5-5.1)
--- NOTE | 2018-01-07 12:04 | NUR ---
Pt out of room at [facility], CM was able to speak with Pt's mom. Per mom, Pt resided at home alone, was independent with ADLS. Pt was self employed and has no health insurance. Pt had a cane that he used sometimes for mobility. RAMON spoke with Leandra from [employer], Pt does not qualify for Medicaid at this time, Leandra provided mom with a mark application. Following.
--- NOTE | 2018-01-07 15:13 | NUR ---
CONTACT IR TO INFORM ABOUT ORDER TO REPLACE OR REPAIR LEFT SUBCLAVIAN TL.
--- NOTE | 2018-01-07 15:13 | NUR ---
PT RETURN TO UNIT AROUND 1215 TODAY.
--- NOTE | 2018-01-07 15:32 | NUR ---
CONTACT DR. VELÁZQUEZ AND HE IS UNABLE TO COME TO [facility] TO WORK ON RIGHT SUBCLAVIAN TL CVC. CONTACT IR THEY ARE UNABLE TO SEE PT TODAY INSTRUCTED TO CONTACT ANESTHESIA. CONTACT ANESTHESIA THEY INFORMED THE UNIT SECRETERY THAT THEY WOULD NOT BE ABLE TO DEAL WITH THE CENTRAL LINE. WILL TRY AND CONTACT DR VELÁZQUEZ AGAIN.
[2018-01-07 17:01] VITALS: BP 151/83
--- NOTE | 2018-01-07 17:23 | NUR ---
SPOKE TO DR. VELÁZQUEZ AND DR. GARCIA AND INSTRUCTED OK TO USE MOST DISTAL RED PORT FOR TPN IT STILL DRAWS BACK BLOOD. START PERIPHERAL IV RIGHT AC FOR IVF AND IV ABX. WILL CONTINUE TO ASSESS.
[2018-01-07 20:00] VITALS: BP 152/84
--- NOTE | 2018-01-07 21:00 | NUR ---
PT REQUESTED BELONGINGS FROM SECURITY AT START OF SHIFT. VERIFIED BELONGINGS WITH PATIENT, PT'S MOTHER JENNIFER, AND GIOVANNI FROM SECURITY. PT'S MOTHER, PAT, TO TAKE HOME BELONGINGS EXCEPT PT'S GLASSES.
[2018-01-07 23:06] LABS: COMPLEMENT-C4 19 mg/dL (14-44); IgA 209 mg/dL (61-437); IgG 966 mg/dL (700-1600); IgM 103 mg/dL (20-172)
[2018-01-08] VITALS: BP 155/86
[2018-01-08 03:50] VITALS: BP 167/91
--- NOTE | 2018-01-08 05:19 | NUR ---
ASSUMED PT CARE AT 1930. NURSING ASSESSMENT COMPLETED AT START OF SHIFT. OPERATIONS BOARDMAN IN PLACE, TRACING SINUS RHYTHM WITH OCCASIONAL PACS, PVCS. HOURLY ROUNDING COMPLETED. Q2H REPOSITIONING COMPLETED. CALL LIGHT WITHIN REACH. PT CONTINUES TO IMPROVE, NO EPISODES OF CONFUSION OBSERVED THIS SHIFT. PT'S CENTRAL LINE CONTINUED TO LEAK THIS SHIFT, DR. GARCIA NOTIFIED. NEW ORDERS RECEIVED. PT PROGRESSING TOWARDS GOALS.
[2018-01-08 06:03] LABS: ALBUMIN 2.5 g/dL (3.4-5.0); CALCIUM 8.7 mg/dL (8.5-10.1); CREATININE 2.4 mg/dL (0.6-1.3); MAGNESIUM 2.6 mg/dL (1.8-2.4); PHOSPHORUS* 3.8 mg/dL (2.5-4.9); POTASSIUM 3.9 mmol/L (3.5-5.1)
[2018-01-08 08:31] VITALS: BP 157/89
[2018-01-08 12:36] VITALS: BP 158/81
[2018-01-08 16:11] LABS: KAPPA FREE LIGHT CHAINS 53.5 mg/L (3.3-19.4); LAMBDA FREE LIGHT CHAINS 41.2 mg/L (5.7-26.3)
--- NOTE | 2018-01-08 17:27 | NUR ---
PT HAD NEW TRIPLE LUMEN CENTRAL LINE PLACED L CHEST. PT HAS BEEN UP IN CHAIR ALL DAY. DENIES C/O. ALERT AND ORIENTED TO PERSON AND SITUATION. FORGETFUL AT TIME. MOTHER AT BEDSIDE AND REPORTS PT MUCH MORE ORIENTED AND ACTIVE. PORRAS TO DD WITH DARK TEREZA URINE. TELE SR. RESPIRATIONS EVEN AND UNLABORED AT REST. PT REPEATEDLY ASKS FOR SOMETHING TO DRINK - CURRENTLY PENDING SWALLOW STUDY - GIVEN MOUTH SWABS AND MOISTURIZER.
--- NOTE | 2018-01-08 17:46 | CARDNUC ---
[place] [address] CARDIAC NUCLEAR IMAGING REPORT Name: MARTINA VENEGAS III Room: [address] IN [facility]#: [id number] Admission: 01/01/18 Attend Phys: Gagandeep Tam Discharge: Date of : 53 Date of Service: 01/08/18 1746 Report #: [id number] THIS REPORT FOR: //name// APPROVED REPORT Study performed: 01/07/2018 13:41:00 Indication: cardiac arrest, mi Patient Location: In-Patient Room #: 201 Stress Tech: Sharon Bella Stress Nurse: Virginia Birmingham RN Ht: 5 ft 8 in Wt: 178 lbs BSA: 1.94 m2 BMI: 27.06 Medical History Medical History: diabetes, mi Medications: coreg, metoprolol, lisinopril, hydralazine Allergies: nkda Cardiac Risk Factors: diabetes, age Previous Cardiac Procedures: pci with stent Exercise History: Sedentary Meds Held (24 hrs): metoprolol Resting Data Rest SPECT myocardial perfusion imaging was performed in supine position 30 minutes following the intravenous injection of 11.0 mCi of Tc-99m Sestamibi. Time of rest injection: 08:05 The images were gated to evaluate regional wall motion and calculate left ventricular ejection fraction. Administration Route: IV Administration Site: Right AC Pharmacologic Stress Pharmacologic stress test was performed by injecting Regadenoson 0.4 mg IV push over 10-15 seconds immediately followed by the intravenous injection of 31.9 mCi of Tc-99m Sestamibi. Time of stress injection: 10:05 Administration Route: IV Administration Site: Right AC Heart Rate at time of stress injection: 93 bpm. Gated Stress SPECT was performed 40 minutes [place] [address] CARDIAC NUCLEAR IMAGING REPORT Name: MARTINA VENEGAS III Room: [address]#: [id number] Admission: 01/01/18 Attend Phys: Gagandeep Tam Discharge: Date of : 53 Date of Service: 01/08/18 1746 Report #: [id number] The images were gated to evaluate regional wall motion and calculate left ventricular ejection fraction. Stress Test Details Stress Test: Pharmacologic stress testing performed using 0.4 mg of regadenoson per 5 mL given IV over 10 seconds. Reason for pharmacologic stress test: physical limitation. HR Max Heart Rate (APMHR): 157 bpm Resting HR: 90 bpm Target HR (85% APMHR): 133 bpm Max HR Achieved: 93 bpm % of APMHR: 59 Recovery HR: 90 bpm BP Resting BP: 169/101 mmHg Recovery BP: 145/84 mmHg ECG Resting ECG: Sinus Rhythm, nonspecific ST-T abnormalities Stress ECG: Sinus Rhythm, nonspecific ST-T abnormalities ST Change: None Arrhythmia: None Recovery ECG: Sinus Rhythm, nonspecific ST-T abnormalities Recovery ST Change: None Recovery Arrhythmia: None Clinical Reason for Termination: Completed protocol Exercise duration: 0 min sec Exercise capacity: 1 METs The patient tolerated Lexiscan infusion without significant symptoms. Nurse Comments pt unable to stand Stress ECG Conclusion The baseline 12-lead EKG shows sinus rhythm with some subtle nonspecific ST segment depression in inferior leads. EKGs obtained during and post Lexiscan infusion showed sinus rhythm with no significant ST or T wave changes when compared to baseline. There were no significant stress[place] [address] CARDIAC NUCLEAR IMAGING REPORT Name: MARTINA VENEGAS III Room: [address]#: [id number] Admission: 01/01/18 Attend Phys: Gagandeep Tam Discharge: Date of : 53 Date of Service: 01/08/18 1746 Report #: [id number] Study Quality Study: Good Artifact: No artifact Study Data At rest, the left ventricular ejection fraction was 24%.. Post stress, the left ventricular ejection was 21%.. TID = 1.09. Perfusion There are no fixed or reversible defects to suggest infarct or ischemia. Wall Motion There is severe global hypokinesis. The left ventricle appears dilated. Nuclear Conclusion ECG Findings: non-ischemic Clinical Findings: negative for ischemia Nuclear Findings: negative for ischemia Exercise Capacity: not assessed Left Ventricular Function: abnormal Myocardial perfusion images show no defect to suggest infarct or ischemia. Left ventricular systolic function appears severely decreased with global hypokinesis. The left ventricle appears dilated. Findings consistent with a dilated cardiomyopathy. <Conclusion> The baseline 12-lead EKG shows sinus rhythm with some subtle nonspecific ST segment depression in inferior leads. EKGs obtained during and post Lexiscan infusion showed sinus rhythm with no significant ST or T wave changes when compared to baseline. There were no significant stress-induced arrhythmias. <ELECTRONICALLY SIGNED> By: Emmanuel Aden MD, FACC 01/08/18 [phone] Emmanuel Aden MD, FACC /INF
[2018-01-08] MEDS ORDERED: NOVOLOG100 UNIT/1 SUBQ (18:11)
[2018-01-08] MEDS ORDERED: LANTUS100 UNIT/M SUBQ (18:11)
[2018-01-08 20:00] VITALS: BP 156/89
[2018-01-09] VITALS: BP 149/85
[2018-01-09 04:00] VITALS: BP 153/95
[2018-01-09 04:55] LABS: ALBUMIN 2.3 g/dL (3.4-5.0); CALCIUM 8.4 mg/dL (8.5-10.1); CREATININE 2.1 mg/dL (0.6-1.3); PHOSPHORUS* 4.1 mg/dL (2.5-4.9); POTASSIUM 3.9 mmol/L (3.5-5.1)
--- NOTE | 2018-01-09 05:17 | NUR ---
ASSUMED PT CARE AT 1930. NURSING ASSESSMENT COMPLETED THIS SHIFT. PT VOICED NO CONCERNS. GERIATRICIAN IN PLACE, TRACING SINUS RHYTHM. FALL PRECAUTIONS IN PLACE, Q2H REPOSITIONING COMPLETED. CENTRAL LINE DRESSING SATURATED AT START OF SHIFT, DRESSING CHANGED, ALL PORTS ASPIRATED FOR BLOOD, GOOD BLOOD RETURN OBSERVED, NO LEAKAGE OBSERVED AFTER DRESSING CHANGED. AT 0330, DRESSING NOTED TO BE SATURATED AGAIN. FLUIDS CHANGED TO PERIPHERAL LINE. DRESSING CHANGED. AT 0500, DRESSING NOTED TO BE SATURATED AGAIN. REINFORCED WITH ABD PAD. STAT CXR ORDERED TO VERIFY PLACEMENT PER PROTOCOL. AWAITING RESULTS.
[2018-01-09 08:30] VITALS: BP 158/90
[2018-01-09 09:08] LABS: GLOMERULR BASEM MEMBRN AB 3 units (0-20)
[2018-01-09 11:30] VITALS: BP 159/90
--- NOTE | 2018-01-09 13:24 | NUR ---
ASSUMED PT CARE AT 0700 PT IS ALERT AND ORIENTED X 4 PT DENIES PAIN OR SOA PT IS BLIND IN LEFT EYE, PT IS UP WITH ASSIST X 1-2 WITH WALKER PT IS A FALL RISK BED ALARM IS ON, PT IS SR ON THE MONITOR, PT ASKED ABOUT SWALLOW TEST THIS NURSE CALLED AND SPOKE WITH SPEECH THERAPY WHO WERE UNAWARE THAT PT HAD NEW ORDER FOR VIDEO SWALLOW WHICH WAS DONE ON SATURDAY NEUROLOGY WANTS NEW SWALLOW SCREEN DONE BY SPEECH SINCE PT IS MORE AWAKE ALERT AND IMPROVING, PT IS SR ON THE MONITOR, WILL CONTINUE TO MONITOR
[2018-01-09 14:10] LABS: ANA INTERPRETATION Negative (Negative)
[2018-01-09 16:00] VITALS: BP 141/78
[2018-01-09 18:10] LABS: GLOBULIN TOTAL 2.6 g/dL (2.2-3.9); M-SPIKE Not Observed g/dL (Not Observed)
[2018-01-09 20:00] VITALS: BP 144/85
[2018-01-10] VITALS: BP 133/87
[2018-01-10 04:00] VITALS: BP 156/95
[2018-01-10 05:02] LABS: ALBUMIN 2.2 g/dL (3.4-5.0); CALCIUM 8.1 mg/dL (8.5-10.1); PHOSPHORUS* 4.1 mg/dL (2.5-4.9); POTASSIUM 4.3 mmol/L (3.5-5.1)
--- NOTE | 2018-01-10 05:35 | NUR ---
ASSUMED CARE OF PT AFTER REPORT AT 1930. PT A&OX4. VSS. PHYSICAL ASSESSMENT COMPLETED AND CHARTED. PT ON RA WITH 98% O2 SAT. PT TRACING SR PVC ON TELE. PT UP WITH 1-2 ASSIST TO THE RECLINER. LEFT SUBCLAVIAN TRIPLE LUMEN PATENT AND INTACT. PT DOES NOT HAVE URINE OUTPUT FOR MORE THAN 6 HRS AFTER PORRAS REMOVAL. BLADDER SCAN SHOWS [address] CARL INFORMED WITH NEW ORDER. PT REFUSED TO DO STRAIGHT CATH AT THIS TIME EVEN AFTER EDUCATION WAS DONE. PROVIDER INFORMED. DENIES ANY PAIN OR DISCOMFORT. HOURLY ROUNDING OBSERVED. CALL LIGHT WITHIN REACH. BED IN LOW POSITION. BED ALARM/ CHAIR ALARM ON.
[2018-01-10 08:10] VITALS: BP 150/100
--- NOTE | 2018-01-10 11:14 | NUR ---
RECEIVED RFEPORT FROM KAY AND ASSUMED CARE OF PT @ 1645.PT IS A/O X4 BUT FORGETFUL.VSS,TRACING SR ON THE MONITOR.LUNG SOUNDS ARE CLEAR.PT NEEDS TO URINATE BUT IS HAVING RETENTION AND REFUSING STRAIGHT CATH.PT IS CALM AND COOPERATIVE WITH NO C/O PAIN.PT IS UP WITH ONE ASSIST TO CHAIR.CALL LIGHT AND FALL PRECAUTIONS IN PLACE. WILL CONTINUE TO MONITOR. CARDIOLOGY SAW PT THIS AM.LIFE VEST TO BE FITTED TODAY.OK FOR DISCHARGE TOMORROW.
[2018-01-10 11:26] VITALS: BP 136/75
--- NOTE | 2018-01-10 13:40 | NUR ---
Pt will need a Life Vest at pa, Pt does not have health insurance and does not qualify for [facility]. CM spoke with Pt, Pt stated that he receives his health care through [facility] [phone], CM attempted to contact agency, had to leave a VM. CM also emailed the agency. Pt informed that this agency has, in the past, assisted with medical bills that he has incurred. Pt also referenced [employer], which apparently is some form of care insurance, that [facility] utilizes for payments. Spoke with Betsey from [employer], options for payment are: 1) Pt pay $500 down to obtain the Life Vest and would be set up with a payment plan 2) [facility] could rent the Life Vest for Pt for $3200/month 3) [facility] assistance. Betsey checking for other options. RAMON waiting to hear back from [facility]. Updated Dr Cordova and nurse.
[2018-01-10 15:33] VITALS: BP 143/88
--- NOTE | 2018-01-10 16:14 | NUR ---
ACUTE INPATIENT REHAB CONSULT RECEIVED AND ACKNOWLEDGED BY DR. HENDRICKS AND CANAL BOAT CAPTAIN. WILL FOLLOW PATIENT TO HELP DETERMINE IF HE MAY BENEFIT FROM AN ACUTE INPATIENT REHAB UNIT STAY. THANK YOU FOR THIS REFERRAL.
--- NOTE | 2018-01-10 18:03 | NUR ---
VSS,CARDIAC MONITORING IN PLACE WITH NO CHANGES THIS SHIFT.PT ON ROOM AIR WITH 2L O2 NC WHILE SLEEPING.PT PROGRESSING TOWARDS GOALS.NO C/O PAIN THIS SHIFT.CENTRAL PATENT WITH TPN RUNNING @ 40ML/HR.IV ANTIBIOTICS GIVEN.PT BLADDER SCANNED BY [employer] DRIVER THIS AM WITH >800.PT REFUSES TO BE STRAIGHT CATHED.PT ABLE TO VOID THIS EVENING.REBLADDER SCANNED WITH >454ML/HR.PT NOT ABLE TO RECEIVE LIFE VEST TODAY.PT WORKED WITH PT/OT/ST.PT AMBULATED IN HALLWAY WITH WALKER.VIDEO SWALLOW STUDY COMPLETED WITH RESULTS OF NECTAR THICK LIQUIDS AND MECHANCIAL CHOPPED DIET.HOURLY ROUNDING COMPLETED FOR PT SAFETY.CALL LIGHT AND FALL PRECAUTIONS IN PLACE.WILL CONTINUE TO MONITOR FOR DURATION OF SHIFT.
[2018-01-10 20:00] VITALS: BP 151/97
[2018-01-11] VITALS: BP 141/90
[2018-01-11 04:00] VITALS: BP 156/86
--- NOTE | 2018-01-11 05:45 | NUR ---
ASSUMED CARE OF PT AFTER REPORT AT 1930. PT A&OX4 AND FORGETFUL. VSS. PHYSICAL ASSESSMENT COMPLETED AND CHARTED. PT ON NC AT 2L WITH 95% O2 SAT. PT TRACING SR PVC ON TELE. PT UP WITH 1 ASSIST TO TOILET AND RECLINER. SUBCLAVIAN TRIPLE LUMEN TO LEFT CHEST PATENT AND INTACT. ABLE TO TOLERATE NECTAR THICKENED LIQUIDS WELL. PT REFUSED TO BE TURNED EVEN AFTER EDUCATION WAS GIVEN. HOURLY ROUNDING OBSERVED. CALL LIGHT WITHIN REACH. BED IN LOW POSITION. BED/ CHAIR ALARM ON.
[2018-01-11 08:19] VITALS: BP 148/80
--- NOTE | 2018-01-11 11:39 | NUR ---
PT REQUIRES MOD TO MAX ASSIST WITH GAIT BELT AND WALKER FOR TRANSFER OUT OF CHAIR. PT HAS UNSTEADY GAIT AND NEEDS OCCASIONAL PROMPTS WITH TRANSFER OR AMBULATION. PT REFUSES TELE MONITOR AND STATES HE IS GOING HOME TODAY. INCONTINENCE BM AND URINARY RETENTION, REFUSES CATHETER. CENTRAL LINE L SUBCLAVIAN LEAKING. TPN INFUSING.
[2018-01-11 11:47] VITALS: BP 145/70
--- NOTE | 2018-01-11 13:17 | NUR ---
pt adamant about leaving [facility]. risks of leaving hospital or refusing further medical tx explained. pt continues to refuse. pt wants tpn stopped and cl removed. safety at home discussed with pt also and need for continued p.t. pt reports a ride is already on the way. made aware.
--- NOTE | 2018-01-11 13:35 | NUR ---
cl line removed intact, pressure held over site and dressing applied. pt signed ama form after risks explained. pt acknowledged risks.
--- NOTE | 2018-01-11 13:51 | NUR ---
pt waiting on friend to pick him up. mother expresses concerns about pt going home and pt safety at home related to weakness.
--- NOTE | 2018-01-11 14:45 | NUR ---
FRIEND HERE TO PICK PT UP. FRIEND EXPRESSES CONCERNS OF PT GOING HOME. PT VERY AGITATED AND SAYS IF FRIEND WONT TAKE HIM HOME, PT WILL CALL [facility].
--- NOTE | 2018-01-11 15:30 | NUR ---
PT REFUSED DC WOUND PICTURES
--- NOTE | 2018-01-11 15:30 | NUR ---
SPOKE WITH PT. ASKED HIM IF HE WAS SURE HE WANTED TO LEAVE AGAINST MEDICAL ADVICE. HE STATED YES AND I'VE ALREAY SIGNED THE PAPER. TOLD HIM THE [facility]YvroseWANTED HIM TO HAVE AT LEAST 2 [facility] VISITS. HE WAS AGREEABLE. HE CONFIRMED HIS ADDRESS AND PHONE NUMBER FOR ME. CM CONTACTED [facility]. SHE GOT APPROVAL FOR [facility] VISITS. FAXED HER FACE SHEET/H&P/CONSULTS AND PROGRESS NOTE FROM TODAY AND ORDER. AGREED TO SIGN HH ORDER SINCE PT.DID NOT HAVE A PCP.
--- NOTE | 2018-01-11 15:53 | NUR ---
PT ASSISTED TO MOTHER'S CAR IN WC AND ASSISTED INTO CAR WITH MOD ASSIST USING GAIT BELT. ALL BELONGINGS WITH PT.
== END 2018-01-11 15:55 | disposition home health service (06) | DRG 154 ==
LOC: M.ERS 17:50 → M.TBA-ER 18:58 → M.ICU 18:58 → M.2W 01-06 11:30
PROVIDERS: Emergency Medicine Emergency Medical Services; Internal Medicine; Internal Medicine Nephrology; Internal Medicine Pulmonary Disease; ADMIT Internal Medicine
PROC: 5A1955Z Respiratory Ventilation, Greater than 96 Consecutive Hours (ICD-10-PCS; principal; 2018-01-01)
PROC: 0BJ08ZZ Inspection of Tracheobronchial Tree, Via Natural or Artificial Opening Endoscopic (ICD-10-PCS; principal; 2018-01-01)
PROC: 0BH17EZ Insertion of Endotracheal Airway into Trachea, Via Natural or Artificial Opening (ICD-10-PCS; principal; 2018-01-01)
PROC: 05H633Z Insertion of Infusion Device into Left Subclavian Vein, Percutaneous Approach (ICD-10-PCS; 2018-01-06)
DX: T17.228A Food in pharynx causing other injury, initial encounter (principal); I46.9 Cardiac arrest, cause unspecified; J96.00 Acute respiratory failure, unspecified whether with hypoxia or hypercapnia; J69.0 Pneumonitis due to inhalation of food and vomit; N17.9 Acute kidney failure, unspecified; M62.82 Rhabdomyolysis; I13.0 Hypertensive heart and chronic kidney disease with heart failure and stage 1 through stage 4 chronic kidney disease, or unspecified chronic kidney disease; I31.3 Pericardial effusion (noninflammatory); I50.22 Chronic systolic (congestive) heart failure; I42.9 Cardiomyopathy, unspecified; G93.1 Anoxic brain damage, not elsewhere classified; E87.0 Hyperosmolality and hypernatremia; D69.6 Thrombocytopenia, unspecified; E78.5 Hyperlipidemia, unspecified; E87.6 Hypokalemia; N18.3 Chronic kidney disease, stage 3 (moderate); E88.09 Other disorders of plasma-protein metabolism, not elsewhere classified; I25.10 Atherosclerotic heart disease of native coronary artery without angina pectoris; E11.22 Type 2 diabetes mellitus with diabetic chronic kidney disease; R33.9 Retention of urine, unspecified; T44.5X5A Adverse effect of predominantly beta-adrenoreceptor agonists, initial encounter; T50.1X5A Adverse effect of loop [high-ceiling] diuretics, initial encounter; X58.XXXA Exposure to other specified factors, initial encounter; Y93.89 Activity, other specified; Y92.89 Other specified places as the place of occurrence of the external cause; Y99.8 Other external cause status; Z79.82 Long term (current) use of aspirin; Z79.899 Other long term (current) drug therapy; Z28.21 Immunization not carried out because of patient refusal